=== PATIENT | female | born 1945 | race Hispanic/Latino ===

== ENCOUNTER → 2018-08-28 | Outpatient (CLI) | payer OTHER, MEDICARE ==
[~2018-08-28] MED LIST: ASPI-555 PO; BACL10TA PO; BUSP10TA3 PO; LISI2.5T2 PO; METF-446 PO; PANT40TA25 PO; ROSU10TA PO; VENL75TA63 PO
== END | disposition home or self-care (01) ==
LOC: RAH 10:39
PROVIDERS: ATTEND Internal Medicine
DX: R09.89 Other specified symptoms and signs involving the circulatory and respiratory systems (principal)
CPT/HCPCS: 93922

== ENCOUNTER → 2024-06-20 | Outpatient (CLI) | payer OTHER, MEDICARE ==
[~2024-06-20] MED LIST changes: -ASPI-555 PO; +ASPI-556 PO; +LISI2.5T13 PO; -LISI2.5T2 PO; -PANT40TA25 PO; +PANT40TA54 PO; -ROSU10TA PO; +ROSU10TA22 PO; +VENL-83 PO; -VENL75TA63 PO
--- NOTE | 2024-06-20 10:21 | HMCIMG ---
UPPER GI SERIES History: DYSPHAGIA, ENCOUNTER SCREENING FOR UPPER GASTROINTESTINAL DISORDER Comparison: none Contrast: barium sulfate suspension, effervescent granules TECHNIQUE: EXAMINATION IS DONE UNDER FLUOROSCOPIC CONTROL, WITH FLUOROSCOPIC SPOTS OBTAINED. ALSO, OVERHEAD AP, LATERAL AND OBLIQUE VIEWS WERE OBTAINED. FINDINGS: Under fluoroscopic evaluation, the patient's esophagus demonstrates normal course, contour and caliber without evidence of mucosal abnormality hiatal hernia, or gastroesophageal reflux. Normal motility. The stomach, duodenal bulb, duodenal C-loop, and visualized proximal small bowel show no extrinsic compression, fixed filling defect, ulcerations or abnormalities in mucosal pattern. However, there is a diverticulum arising from the second portion of the duodenum measuring 3.4 cm. There are 2 smaller diverticuli, one arising from the distal second portion, measuring 1.6 cm, the third one arising from the distal third portion measuring 2.2 cm. No tumor is identified. There is no gastric outlet obstruction. There is no extravasation. There is no evidence of malrotation. IMPRESSION: Duodenal diverticula as noted. Otherwise normal UPPER GASTROINTESTINAL SERIES (UGI).
== END | disposition home or self-care (01) ==
LOC: RAH 08:43
PROVIDERS: ATTEND Internal Medicine
DX: Z13.810 Encounter for screening for upper gastrointestinal disorder (principal); R13.10 Dysphagia, unspecified; K57.10 Diverticulosis of small intestine without perforation or abscess without bleeding
CPT/HCPCS: 74240